=== PATIENT | female | born 1970 | race Caucasian/White ===

== ENCOUNTER 2019-07-24 07:52 | Emergency (ER) | payer OTHER | END 2019-07-24 08:27 | disposition home or self-care (01) | LOC: ERS 07:52 | DX: S90.32XA Contusion of left foot, initial encounter (principal); W01.0XXA Fall on same level from slipping, tripping and stumbling without subsequent striking against object, initial encounter | CPT/HCPCS: 99283 ==

== ENCOUNTER 2022-12-19 04:01 | Emergency (ER) | payer SELFPAY | END 2022-12-19 04:13 | disposition home or self-care (01) | LOC: ERS 04:01 | DX: M79.10 Myalgia, unspecified site (principal) | CPT/HCPCS: 99283 ==